=== PATIENT | male | born 1930 | race Caucasian/White ===

== ENCOUNTER 2016-11-09 09:44 | Inpatient (IN) | payer MEDICARE, BC ==
[~2016-11-09 09:44] MED LIST: APRESOLINE-DPS50 MG PO; ASCORBIC ACID500 MG PO; ASPIRIN EC81 MG PO; CALCIUM + VITA1 EACH PO; CARBAMAZEPINE100 M2 PO; CARBAMAZEPINE200 M3 PO; CATAPRES-DPS0.2 MG PO; FLOMAX DPS0.4 MG PO; HCTZ12.5 MG PO; LIDOCAINE 4% TP; MUCINEX1200 MG PO; NORVASC DPS10 MG PO; NOVOLIN N100 UNIT/1 SQ; NOVOLOG100 UNIT/2 SQ; OXY IR DPS5 MG PO; PROSCAR DPS5 MG PO; SYNTHROID25 MCG PO; TENORMIN-DPS25 MG PO; THERAPEUTIC MUL1 TAB PO; TYLENOL DPS325 MG PO; VITAMIN D-32000 UNI1 PO; ZESTRIL DPS20 MG PO; ZOCOR DPS20 MG PO
[2016-11-16] MEDS ORDERED: NOVOLOG100 UNIT/2 SQ (13:24)
[2016-11-16] MEDS ORDERED: VALTREX DPS1 GM PO (13:24)
[2016-11-16] MEDS ORDERED: LEVEMIR100 UNIT/1 SQ (13:24)
[2016-11-16] MEDS ORDERED: TEGRETOL DPS200 MG PO ×2 (13:25→13:32)
[2016-11-16] MEDS ORDERED: LEXAPRO DPS10 MG PO (13:25)
[2016-11-16] MEDS ORDERED: CULTURELLE1 CAP PO (13:26)
[2016-11-16] MEDS ORDERED: BACTROBAN OINT.22 GM TP (13:28)
[2016-11-16] MEDS ORDERED: QUESTRAN PWD378 GM PO (13:29)
[2017-02-05] MEDS ORDERED: LEVEMIR100 UNIT/1 SQ (15:30)
[2017-02-05] MEDS ORDERED: NOVOLOG100 UNIT/2 SQ ×2 (15:32)
[2017-02-05] MEDS ORDERED: COLACE-DPS100 MG PO (15:32)
[2017-02-05] MEDS ORDERED: MELATONIN3 MG PO (15:33)
[2017-02-05] MEDS ORDERED: MIRALAX PACKET17 GM PO (15:33)
[2017-02-05] MEDS ORDERED: SEROQUEL50 MG PO (15:33)
[2017-02-05] MEDS ORDERED: ILOTYCIN1 GM OP (15:34)
[2017-02-05] MEDS ORDERED: HEPARIN5000 UNITS SQ (15:34)
[2017-02-05] MEDS ORDERED: TUMS DPS500 MG PO (15:35)
[2017-02-05] MEDS ORDERED: TYLENOL DPS325 MG PO (15:35)
[2017-02-05] MEDS ORDERED: MAALOX DPS30 ML PO (15:35)
[2017-02-05] MEDS ORDERED: GLUCAGON HCL1 MG IM (15:36)
== END 2016-11-14 13:50 | DRG 308 ==
DX: R00.1 Bradycardia, unspecified (principal); L89.323 Pressure ulcer of left buttock, stage 3; N17.9 Acute kidney failure, unspecified; I69.351 Hemiplegia and hemiparesis following cerebral infarction affecting right dominant side; E13.51 Other specified diabetes mellitus with diabetic peripheral angiopathy without gangrene; J44.9 Chronic obstructive pulmonary disease, unspecified; I95.1 Orthostatic hypotension; E86.0 Dehydration; R91.8 Other nonspecific abnormal finding of lung field; N40.1 Benign prostatic hyperplasia with lower urinary tract symptoms; R33.9 Retention of urine, unspecified; L01.00 Impetigo, unspecified; B00.1 Herpesviral vesicular dermatitis; F43.21 Adjustment disorder with depressed mood; I25.10 Atherosclerotic heart disease of native coronary artery without angina pectoris; K59.09 Other constipation; G40.909 Epilepsy, unspecified, not intractable, without status epilepticus; I10 Essential (primary) hypertension; E78.5 Hyperlipidemia, unspecified; E03.9 Hypothyroidism, unspecified; Z79.4 Long term (current) use of insulin; Z91.81 History of falling; Z79.82 Long term (current) use of aspirin; Z87.891 Personal history of nicotine dependence; Z66 Do not resuscitate

== ENCOUNTER → 2017-01-15 | Outpatient (CLI) | payer MEDICARE, BC ==
[~2017-01-15] MED LIST changes: +BACTROBAN OINT.22 GM TP; +COLACE-DPS100 MG PO; +CULTURELLE1 CAP PO; +GLUCAGON HCL1 MG IM; +HEPARIN5000 UNITS SQ; +ILOTYCIN1 GM OP; +LEVEMIR100 UNIT/1 SQ; +LEXAPRO DPS10 MG PO; +MAALOX DPS30 ML PO; +MELATONIN3 MG PO; +MIRALAX PACKET17 GM PO; +QUESTRAN PWD378 GM PO; +SEROQUEL50 MG PO; +TEGRETOL DPS200 MG PO; +TUMS DPS500 MG PO; +VALTREX DPS1 GM PO
== END | disposition home or self-care (01) ==
DX: Z00.00 Encounter for general adult medical examination without abnormal findings (principal); G40.109 Localization-related (focal) (partial) symptomatic epilepsy and epileptic syndromes with simple partial seizures, not intractable, without status epilepticus; G50.0 Trigeminal neuralgia; F03.90 Unspecified dementia, unspecified severity, without behavioral disturbance, psychotic disturbance, mood disturbance, and anxiety

== ENCOUNTER 2017-01-18 15:22 | Inpatient (IN) | payer MEDICARE, BC ==
[~2017-01-18] VITALS: Ht 177.8 cm; Wt 95.5 kg
--- NOTE | ~2017-01-18 | WND ---
ADMIT: 01/18/2017 RM/LOC: 511 [facility] MR#: [id number] [address] [address] [address] [place] [address] Wound Care Clinic SEX: M AGE: 86 : 1930 DATE OF VISIT: 01/21/2017 TIME IN: 1350 hours. TIME OUT: 1405 hours. REASON FOR CONSULT: Pressure ulcer to right buttock. HISTORY OF PRESENT ILLNESS: Anjum is an 86-year-old male, who was admitted on January 18, 2017, who is being seen today for a pressure injury to his buttock. His is at bedside and says Anjum has dementia. Anjum says "goddammit do you have to say that over again." His eyes were closed while he talks and he is swinging his hands in the air. His reports that they have been seen by Dr. Alonzo in [place] and he had them using 2 different creams that they mix together; however, his reported that that did not work. She also states that Anjum was seen in the [facility] as well as [facility], and they have changed different modalities for wound care multiple times. Most recently, his home health nurse recommended using this Mepilex border dressing and that is what seems to be working the best. PAST MEDICAL HISTORY: Type 2 diabetes mellitus, adjustment disorder with depressed mood, coronary artery disease, BPH, chronic constipation, seizure disorder, frequent falls, neurologic gait disturbance, hyperlipidemia, benign essential hypertension, hyponatremia, hypothyroidism, and peripheral vascular disease. ALLERGIES: Sulfa, latex tape, and Lasix. MEDICATIONS: Scheduled medications: 1. Alprazolam. 2. Aspirin. 3. Catapres. 4. Colace. 5. Flomax. 6. MiraLAX. 7. Norvasc. 8. Seroquel. 9. Synthroid. 10.Tegretol. 11.Tenormin. 12.Zyprexa. 13.Dulcolax. 14.Heparin. 15.Levemir. 16.NovoLog. 17.Exelon. SOCIAL HISTORY: This is obtained from his at bedside. She reports that he does not use tobacco, alcohol, or illicit drugs. He is a previous smoker. He has been living at home, and his has been taking care of him. ADMIT: 01/18/2017 RM/LOC: 511 [facility] MR#: [id number] [address] [address] [address] [place] [address] Wound Care Clinic SEX: M AGE: 86 : 1930 REVIEW OF SYSTEMS: Difficult to obtain from the patient. His does state that he had a stroke that caused him to have some right-sided hemiparesis, but he has worked hard with physical therapy and somehow they have him to be able to ambulate, but over the last couple weeks, he has had multiple falls. PHYSICAL EXAMINATION: Anjum has an area on the left side of his gluteal cleft about midway down that measures 0.8 cm in length x 0.3 cm in width. It is a dry, brown crest. There is no periwound erythema noted. There is no drainage noted. It is not fluctuant or indurated. ASSESSMENT: Resolving stage III pressure ulcer to the left side of his gluteal cleft. PLAN: Staff will cleanse his buttock wound with soap and water and apply a Mepilex 3 x 3 border dressing. They will change every 3 days and as needed for excessive contamination. They will apply skin prep before plus applying the Mepilex border dressing. Wound Care will follow while Anjum is in the hospital. Joanne Hu APRN/ dangelo JOB #: [id number] CC: Aureliano Us, Attending Physician Aureliano Us, Family Physician
--- NOTE | ~2017-01-18 | WND ---
ADMIT: 01/18/2017 RM/LOC: 511 [facility] MR#: [id number] [address] [address] [address] [place] [address] Wound Care Clinic SEX: M AGE: 86 : 1930 DATE OF VISIT: 01/29/2017 TIME IN: 10:40. TIME OUT: 10:45. REASON FOR VISIT: Re-evaluation of pressure injury to right buttock. This is request for wound care from Dr. Us. HISTORY OF PRESENT ILLNESS: This is an 86-year-old male, admitted on January 18, 2017 who was followed by Wound Care for pressure injury to his buttock. He was seen by Wound Care on 01/21/2017. According to his at bedside, he has had this wound for quite some time and different creams have been used. However, he was seen in the [facility] and the [facility] in [facility] and different modalities were used for wound care. Most recently, his home health nurse had been using a 3 x 3 Mepilex Border that the feels is working the best. He does have a low air loss mattress on his bed as well as a chair air cushion. He is examined today by Wound Care. REVIEW OF SYSTEMS: He is sitting in his recliner on a chair air cushion. He is awake and alert. He is agitated about being examined; however, did reinforce to him that his at the bedside also wanted to see his bottom. After that, he was willing to stand and be examined. No recent fever or chills. No nausea or vomiting. No cough, cold, or chest pain. He does not have any pain in the area. FOCUSED EXAMINATION: VITAL SIGNS: Temperature is 97.1, pulse 58, respirations 16, blood pressure 144/40, and O2 sats on room air is 99%. Focused exam to his sacral, coccyx, buttocks area shows a small crust on the left buttocks that has peeling epithelium periwound area. The crust measures 0.8 x 0.3 cm, it is superficial. No surrounding erythema or induration. ASSESSMENT: Healing stage III pressure ulcer injury to left buttock. TREATMENT PLAN: We will continue with the current treatment plan with the low air loss mattress, chair air cushion, position changes, Mepilex Border changed every 3 days after application of no Sting Barrier wipe. Thank you for this referral, and Wound will follow while he is inpatient. Florencia Nunez APRN/ dangelo JOB #: [id number] CC: Aureliano Us, Attending Physician Aureliano Us, Family Physician
[~2017-01-18 15:22] MED LIST changes: -COLACE-DPS100 MG PO; -GLUCAGON HCL1 MG IM; -HEPARIN5000 UNITS SQ; -ILOTYCIN1 GM OP; -MAALOX DPS30 ML PO; -MELATONIN3 MG PO; -MIRALAX PACKET17 GM PO; -SEROQUEL50 MG PO; -TUMS DPS500 MG PO
--- NOTE | 2017-01-29 14:52 | CO ---
ADMIT: 01/18/2017 RM/LOC: 511 [facility] MR#: [id number] [address] [address] [address] [place] [address] Consultation SEX: M AGE: 86 : 1930 DATE OF CONSULTATION: 01/28/2017 ATTENDING PHYSICIAN: Aureliano Us CONSULTING PHYSICIAN: Margarita Cerna APRN TIME IN: 0910 hours. TIME-OUT: 0940 hours. REASON FOR CONSULTATION: Supportive care consultation was requested by Dr. Us for discussion of goals for care. HISTORY OF PRESENT ILLNESS: Mr. Mccartney is an 86-year-old, male with history of CVA with resulting vascular dementia, as well as history of diabetes mellitus type 2, and an ongoing issues with pressure ulcers. He was hospitalized here in October of 2016 for syncopal episode and was found to have autonomic dysfunction at that time. He was then discharged to rehab and was eventually able to get back home. He was readmitted on 01/18 with increasing confusion and delirium. He has had ongoing issues through his hospital stay with significant delirium resulting in aggression. He was also found to have severe constipation and urinary tract infection. Speech Therapy is following him due to concerns for swallow dysfunction and he did undergo a modified barium swallow and which the recommendation was for him to have a modified diet with thickened liquids. Apparently, this patient did not enjoy that diet and family has decided to let him eat a normal regular consistency diet with the known risk for aspiration. Today, he is scheduled to be seen by Neurology and Psychiatry due to his ongoing behavioral issues. Due to his multiple complexities, supportive care consultation was requested to discuss goals for care. In terms of advanced directives, the patient is a do not resuscitate/do not intubate status. The patient's , Melanie Mccartney, whose phone# [phone] is the patient's next of kin medical decision maker. He does indicate on report that he has a living will, however, we do not have a copy of this on file currently. Symptomatically, the patient appears comfortable. He denies pain. He is extremely emotionally labile during my assessment and he frequently becomes tearful. He is cooperative. PAST MEDICAL HISTORY: Type 2 diabetes mellitus, adjustment disorder with depressed mood, coronary artery disease, BPH, chronic constipation, seizure disorder, frequent falls, neurologic gait disturbance, hyperlipidemia, BPH, hyponatremia, hypothyroidism, peripheral vascular disease. ALLERGIES: THE PATIENT IS ALLERGIC TO SULFA AND LATEX WELL TAPE. CURRENT MEDICATIONS: Please see the patient's MAR for specific routes and ADMIT: 01/18/2017 RM/LOC: 511 [facility] MR#: [id number] [address] [address] [address] [place] [address] Consultation SEX: M AGE: 86 : 1930 dosages. His current medications are as follows. 1. Melatonin. 2. Genoptic. 3. Garamycin-DPS. 4. Dulcolax. 5. Rocephin. 6. Zofran. 7. Apresoline. 8. Catapres. 9. NovoLog. 10.Levemir. 11.MiraLax. 12.Heparin. 13.Norvasc. 14.Flomax. 15.Synthroid. 16.Tegretol. 17.Aspirin. 18.Tenormin. 19.Glutose. 20.Glucagon. 21.Maalox. 22.Tylenol. 23.Colace. 24.Nitrostat. SOCIAL HISTORY: The patient is . He was living at home with his . He does not use alcohol or tobacco. He is a previous smoker. FAMILY HISTORY: Reviewed and noncontributory. FUNCTIONAL REVIEW: Prior to his stay per his daughter, he was at home and able to ambulate. He needed occasional assistance with ADLs. He was mildly confused per baseline. His palliative performance scale prior to admission was around 60%. Currently, he is mostly sitting or in bed. He is requiring considerable assistance with ADLs. He is confused. His current palliative performance scale score is a 50%. REVIEW OF SYSTEMS: A 10-point review of systems was completed and although limited due to his mild confusion. It is negative other than those pertinent positives and negatives mentioned in the HPI. PHYSICAL EXAMINATION: GENERAL: The patient is examined in the chair. He is disoriented to place and time, but recognizes his daughter. He will intermittently become tearful. VITAL SIGNS: Temperature 98.6, pulse 87, respirations 14, blood pressure 144/51, oxygen 98% on room air. HEENT: Head is normocephalic. Pupils are equal, round, and reactive with a ADMIT: 01/18/2017 RM/LOC: 511 [facility] MR#: [id number] [address] [place] [id number] [address] [place] [address] Consultation SEX: M AGE: 86 : 1930 diameter of 3 mm bilaterally. Oral mucosa pink and moist with fair dentition. NECK: Supple. RESPIRATORY: Respirations are equal and nonlabored at rest. LUNGS: Diminished in the bases bilaterally. CARDIOVASCULAR: Rate and rhythm regular without murmurs, rubs, or gallops. No edema noted. GASTROINTESTINAL: Soft, nontender. Bowel sounds are positive. Last bowel movement was yesterday. MUSCULOSKELETAL: Generalized weakness. No obvious joint deformities. INTEGUMENTARY: Skin turgor is fair. He does have a pressure ulcer over the left side of his gluteal cleft, however, this is not examined and Wound Care is following this. NEUROLOGIC: As mentioned, he is oriented, understanding who his daughter is, but does not know time. He will follow simple commands. PSYCHIATRIC: Calm and cooperative, but confused. He is tearful intermittently throughout our conversation at an appropriate time. DIAGNOSTIC DATA: Sodium 148, potassium 4.1, BUN 27, creatinine 1.0, total protein 6.4, albumin 2.7. WBC is 5.4, hemoglobin 12.8, hematocrit 39.9, and platelets are 260. IMPRESSION: 1. Physical debility. 2. Dementia. 3. Fatigue. 4. Malaise. 5. Moderate protein-calorie malnutrition. 6. Dysphagia. 7. Delirium. 8. Urinary tract infection. 9. Type 2 diabetes mellitus. 10.Benign prostatic hypertrophy .. 11.Palliative care. 12.The patient is a DNR/DNI. PLAN: I was able to meet with the patient's daughter at the bedside. The ADMIT: 01/18/2017 RM/LOC: 511 [facility] MR#: [id number] [address] [place] [id number] [address] [place] [address] Consultation SEX: M AGE: 86 : 1930 patient's who is the legal decision maker is currently at an appointment and unavailable. We did discuss very briefly his overall status. The plan will be to meet when the patient's returns in about an hour to further discuss goals for the time ahead. Please see my documentation in the chart regarding this conversation. We would like to thank Dr. Us for the invitation to participate in this patient's care. Total consultation time was 30 minutes from 0910 hours to 0940 hours with 17 minutes from 0915 hours to 0932 hours spent [id number] with the patient and family discussing status and goals for the time ahead. As mentioned, there will be further documentation regarding our consult after I meet with the patient's later this morning. Margarita Cerna APRN/ dangelo JOB #: [id number] CC: Aureliano Us, Attending Physician Aureliano Us, Family Physician
--- NOTE | 2017-01-30 13:18 | CO ---
ADMIT: 01/18/2017 RM/LOC: 511 [facility] MR#: [id number] [address] [address] [address] [place] [address] Consultation SEX: M AGE: 86 : 1930 DATE OF CONSULTATION: 01/29/2017 ATTENDING PHYSICIAN: Aureliano Us CONSULTING PHYSICIAN: Aureliano Ramirez MD REASON FOR CONSULTATION: Confusion. HISTORY OF PRESENT ILLNESS: The patient is an 86-year-old white male with a history of vascular dementia who presents with increased confusion. The patient is seen today in his room via TeleHealth. He is accompanied by his . He is a poor historian. He says that he is doing very well and denies all symptoms. He then says that he needs to go since he has things to do. The patient's reports that he has a history of dementia and is confused from time to time otherwise that he has been okay. She is not really sure why the Psychiatry consult was needed. The patient was on Exelon and Lexapro, both these medications have since been discontinued. She thinks the patient did okay on them. Nursing reports however, indicated that patient is confused and has been combative and agitated. He has also been having visual hallucinations and has difficulty falling and staying asleep at night. The patient's symptoms are said to be worse in the evening. He has not been amenable to behavioral approach while he has tried several medications without success. He is currently on Seroquel 12.5 mg twice daily p.r.n. PAST PSYCHIATRIC HISTORY: The patient has no prior psychiatric hospitalization and has no history of self harm or prior suicide attempts. PAST MEDICAL HISTORY: Diabetes, vascular dementia, coronary artery disease, BPH, chronic constipation, seizure disorder, gait disturbance, hyponatremia, hypothyroidism, hypertension, peripheral vascular disease. See records for rest of medical history. MEDICATIONS: See medication list. ALLERGIES: SULFA, LATEX. PAST FAMILY AND SOCIAL HISTORY: The patient is and lives with his . He is retired. He denies alcohol, tobacco, or illicit drug use. He is unaware of any history of mental illness in the family. REVIEW OF SYSTEMS: Ten systems reviewed and all other negative except as noted in the history. MENTAL STATUS EXAMINATION: The patient is cooperative but does not engage in interview. He makes fair eye contact. He has normal psychomotor activity. His speech is normal in rate and volume. He describes his mood as euthymic. His affect is reactive and spontaneous. His thoughts are logical and goal directed. He denies suicidal, homicidal, or violent ideations. He denies ADMIT: 01/18/2017 RM/LOC: 511 [facility] MR#: [id number] [address] [address] [address] [place] [address] Consultation SEX: M AGE: 86 : 1930 hallucinations and no delusions noted at the interview. He is alert and oriented to person only. His memory and concentration are impaired. His language appears intact. His intelligence is average. His insight and judgement are limited. DIAGNOSES: 1. Delirium. 2. Major vascular neurocognitive disorder. PLAN: Discussed assessment with the patient's and nursing staff. Change Seroquel to 25 mg at bedtime, adjust dose based on tolerance and response. Continue medical management. Consult Psych as necessary. Aureliano Ramirez MD/ dangelo JOB #: [id number] CC: Aureliano Us, Attending Physician Aureliano Us, Family Physician
--- NOTE | 2017-01-31 09:47 | NUR ---
went on a stroll throught the hallways. after homer dozed off and woke back up he became very aggitated. yelling at me about going down the same hallways, and he wanted to go downstairs to leave. hes very fixated on pills that he dropped this morning, but the nurse did find them.
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
--- NOTE | 2017-02-01 12:26 | NUR ---
AT 11:21 MARIO WHEEL PATIENT AROUND THE UNIT PATIENT GOT UP SET AT MARIO HE SAID TO MAKE IT QUITE IT MARIO ASK PATIENT TO MAKE WHAT QUITE PATIENT DIDN'T SAY ANYTHING MARIO WHEEL HIM AROUND THE UNIT MORE THEN JUST THROWN HIS BLANKET ON THE FLOOR THEN STARED TO YELLED SO MORE THEN TO HIT MARIO IN THE STOMACH THEN WHEELED HIM AROUND THE UNIT THEN HE THROW THE BLANKET AGAIN TRYED TO HIT MARIO AGAIN THEN TOOK PATIENT BACK TO ROOM THEN HE HAD LUNCH AT 12;38 PATIENT GOT DONE EATING LUNCH JUST YELLING OUT FOR HIS YELLING OVER AND OVER HE IS JUST CALLING HIS NAMES SHE ASKED HIM ASKED IF HE WANTED A RIDED SAID WHAT
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
[2017-02-05] MEDS ORDERED: LEVEMIR100 UNIT/1 SQ (15:30)
[2017-02-05] MEDS ORDERED: COLACE-DPS100 MG PO (15:32)
[2017-02-05] MEDS ORDERED: NOVOLOG100 UNIT/2 SQ ×2 (15:32)
[2017-02-05] MEDS ORDERED: SEROQUEL50 MG PO (15:33)
[2017-02-05] MEDS ORDERED: MIRALAX PACKET17 GM PO (15:33)
[2017-02-05] MEDS ORDERED: MELATONIN3 MG PO (15:33)
[2017-02-05] MEDS ORDERED: ILOTYCIN1 GM OP (15:34)
[2017-02-05] MEDS ORDERED: HEPARIN5000 UNITS SQ (15:34)
[2017-02-05] MEDS ORDERED: MAALOX DPS30 ML PO (15:35)
[2017-02-05] MEDS ORDERED: TYLENOL DPS325 MG PO (15:35)
[2017-02-05] MEDS ORDERED: TUMS DPS500 MG PO (15:35)
[2017-02-05] MEDS ORDERED: GLUCAGON HCL1 MG IM (15:36)
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
--- NOTE | 2017-02-13 17:26 | EEG ---
ADMIT: 01/18/2017 RM/LOC: 511 [facility] MR#: [id number] [address] [address] [address] [place] [address] Inpatient EEG SEX: M AGE: 86 : 1930 DATE: 01/23/2017 EEG NUMBER: [id number] HISTORY OF PRESENT ILLNESS: The patient is an 86-year-old gentleman with history of encephalopathy and vascular dementia. He also has a history of seizure disorder. The EEG is performed for evaluation of his encephalopathy. The EEG was performed on 01/23/2017 in my absence. It has several deficiencies including not reporting the patient activity during the EEG recording, nor stimulating the patient to change the background activity. Throughout the whole recording, the background activity is low-voltage up to 6 hertz activity, which is fairly symmetric bilaterally. I cannot comment whether it attenuates with eye opening as there was no stimulation during the procedure. This remains fairly unchanged in the fragments of the study and that is right now degraded by muscle motion, artifacts nor electrode pops. Hyperventilation was not performed secondary to clinical condition, age, and stroke history. Photic stimulation was performed, but the patient had eyes closed throughout and as per report hard to stimulate. IMPRESSION: This is abnormal EEG recording secondary to slowing of the posterior background rhythm. This activity up to 6 hertz, which is suggestive of hhtn-lj-qxwbueve encephalopathy. The great portion of the study is degraded by electrode and technical artifacts. Dalton Hickey MD/ humairal JOB #: [id number] CC: Aureliano Us MD, Attending Physician Aureliano Us MD, Family Physician
--- NOTE | 2017-02-13 23:45 | PR ---
ADMIT: 01/18/2017 RM/LOC: 511 [facility] MR#: [id number] [address] [address] [address] [place] [address] Progress Note SEX: M AGE: 86 : 1930 DATE: 02/02/2017 SUBJECTIVE: He was seen for agitation thru telehealth. He was apparently agitated yesterday, and the primary team were concerned about his behaviors. [facility] in plan, but they were wondering if the patient needs to be stabilized psychiatrically before being transferred. He has been taking Seroquel 37.5 mg in the morning and 50 mg at night time. Psychiatry had seen this patient on 01/29/2017. I reviewed the chart. As of today, the patient was pleasant, cooperative. He seems to be aware that he is in hospital. He knows that he is 86 years old. He says that he is not going to be aggressive. He also denies any hallucination or delusions. Staff did report that he is doing much better today. He did sleep 5 to 6 hours last night. He has been getting melatonin for sleep along with Seroquel. He denies any pain issues now. OBJECTIVE: He is awake and alert, cooperative. He seems to have good eye contact through the Telehealth. Thought process was goal directed. He did not seem too overtly agitated at this time. He does not seem to be responding to stimuli. His cognition, surprisingly, seems to be good grossly for place and his age. Insight limited. DIAGNOSIS: 1. 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 2. Recent urinary tract infection. PLAN: Continue with Seroquel. We will give Haldol 5 mg p.o. IM q.6 hours p.r.n. basis for agitation. He is also on carbamazepine and if his aggressive behaviors are worsening, they could switch the carbamazepine to Depakote 250 twice a day and slowly titrate upwards. Otherwise, please give us a call if you have any questions. At this time, he does need to hospitalized Inpatient Psychiatric Unit, but if his symptoms worsen, especially if he is hallucinating and also getting increasingly aggressive, options for hospitalization include [facility], which is close by to [facility]. Please give me a call if you have any questions. This man's plan was discussed with the nursing staff there. Luis Richards MD/ dangelo JOB #: [id number] CC: Aureliano Us, Attending Physician Aureliano Us, Family Physician
== END 2017-02-04 13:15 | disposition short-term general hospital (02) | DRG 56 ==
LOC: 5MS 15:22
PROVIDERS: ADMIT Internal Medicine
PROC: 4A10X4Z Monitoring of Central Nervous Electrical Activity, External Approach (ICD-10-PCS; principal; 2017-01-29)
DX: I69.318 Other symptoms and signs involving cognitive functions following cerebral infarction (principal); G93.40 Encephalopathy, unspecified; L89.312 Pressure ulcer of right buttock, stage 2; E44.0 Moderate protein-calorie malnutrition; F01.51 Vascular dementia, unspecified severity, with behavioral disturbance; E11.51 Type 2 diabetes mellitus with diabetic peripheral angiopathy without gangrene; R13.10 Dysphagia, unspecified; E11.40 Type 2 diabetes mellitus with diabetic neuropathy, unspecified; F05 Delirium due to known physiological condition; I69.351 Hemiplegia and hemiparesis following cerebral infarction affecting right dominant side; E87.1 Hypo-osmolality and hyponatremia; N39.0 Urinary tract infection, site not specified; F22 Delusional disorders; B96.20 Unspecified Escherichia coli [E. coli] as the cause of diseases classified elsewhere; R26.9 Unspecified abnormalities of gait and mobility; H10.9 Unspecified conjunctivitis; I10 Essential (primary) hypertension; I25.10 Atherosclerotic heart disease of native coronary artery without angina pectoris; N40.0 Benign prostatic hyperplasia without lower urinary tract symptoms; R29.6 Repeated falls; K59.09 Other constipation; G40.909 Epilepsy, unspecified, not intractable, without status epilepticus; E78.5 Hyperlipidemia, unspecified; E03.9 Hypothyroidism, unspecified; Z66 Do not resuscitate; Z79.4 Long term (current) use of insulin; Z87.891 Personal history of nicotine dependence; Z79.82 Long term (current) use of aspirin